=== PATIENT | female | born 1965 | race Caucasian/White ===

== ENCOUNTER 2018-08-24 10:29 | Outpatient (CLI) | payer BC | END 2018-08-24 10:30 | disposition home or self-care (01) | LOC: RAD 10:29 ==

== ENCOUNTER → 2018-10-04 | Day surgery (SDC) | payer BC ==
[~2018-10-04] MED LIST: Iodixanol 320 MG/ML 100 ML BOTTLE IV ONE; Iodixanol 320 MG/ML 200 ML BOTTLE IV ONE; Lidocaine PF 2% (5 ml) Inj (For Cardiac Arrhy) ONE; Midazolam 2 MG/2 ML VIAL ONE; Nitroglycerin 50mg in D5W 50 MG/250 ML BOTTLE IV ONE; Oxycodone/Acetaminophen 5/325 mg Tab PO PRN; Sodium Chloride 0.45% 1,000 ML IV SCH
--- NOTE | 2018-10-04 07:41 | ED PDOC ---
Arrival/HPI - General Chief Complaint: Lower Extremity Problem/Injury Time Seen by Provider: 10/04/18 07:02 Historian: Patient, Family - History of Present Illness Narrative History of Present Illness (Text): 10/04/18 07:02 Lina Strickland is a 53 year old female, with a past medical history of peripheral artery disease and CAD, who presents to the emergency department complaining of severe crampy left sided leg pain since last night. Patient informs pain radiates from the toes into the groin and is worsened when ambulating. Patient reports left leg feeling cooler than the right. Patient notes left calf is sunk in. Patient informs of intermittent pins and needles sensation. Patient reports left leg pain began intermittently 3 months ago after sustaining a wound to the 4th digit, left foot that did not heal properly. Patient informs visiting Dr. Gould and was diagnosed with peripheral artery disease via MRA and Ultrasound. Patient appreciates purple discoloration on 4th digit left foot currently in the emergency department. Patient informs visiting Dr. Gould 1 week ago for similar symptoms to current complaints who informed her to present to the emergency department if sunken in calf reoccurs. Patient denies any chest pain, shortness of breath, paralysis, headache, fever, chills, cough, or any other complaint. Time/Duration: 24 hours Symptom Onset: Gradual Symptom Course: Unchanged Quality: Cramping Activities at Onset: Light Context: Home Past Medical History - Provider Review Nursing Documentation Reviewed: Yes - Cardiac Hx Cardiac Disorders: Yes Other/Comment: PAD - Psychiatric Hx Substance Use: No Family/Social History - Physician Review Nursing Documentation Reviewed: Yes Family/Social History: No Known Family HX Smoking Status: Heavy Smoker > 10 Cigarettes Daily Hx Alcohol Use: No Hx Substance Use: No Allergies/Home Meds Allergies/Adverse Reactions: Allergies contact metal agent Adverse Reaction (Verified 10/04/18 07:04) RASH Review of Systems - Physician Review All systems were reviewed & negative as marked: Yes - Review of Systems Constitutional: absent: Fevers, Other (chills) Respiratory: absent: SOB, Cough Cardiovascular: Other (Calf sunken in). absent: Chest Pain Musculoskeletal: Arthralgias (left sided leg pain radiating from toes to groin), Other (Left toe purple. Intermittent pins and needles sensation. Left leg feels cooler than right leg. No paralysis of extremities. ) Neurological: absent: Headache Physical Exam Vital Signs Reviewed: Yes Vital Signs Temp Pulse Resp BP Pulse Ox 10/04/18 07:04 97.8 F 87 18 121/65 99 Temperature: Afebrile Blood Pressure: Normal Pulse: Regular Respiratory Rate: Normal Appearance: Positive for: Well-Appearing, Non-Toxic, Comfortable Pain Distress: None Mental Status: Positive for: Alert and Oriented X 3 - Systems Exam Head: Present: Atraumatic, Normocephalic Pupils: Present: PERRL Extroacular Muscles: Present: EOMI Conjunctiva: Present: Normal Mouth: Present: Moist Mucous Membranes Neck: Present: Normal Range of Motion Respiratory/Chest: Present: Clear to Auscultation, Good Air Exchange. No: Respiratory Distress, Accessory Muscle Use Cardiovascular: Present: Regular Rate and Rhythm, Normal S1, S2. No: Murmurs Abdomen: No: Tenderness, Distention, Peritoneal Signs Back: Present: Normal Inspection Upper Extremity: Present: Normal Inspection. No: Cyanosis, Edema Lower Extremity: Present: NORMAL PULSES, Cyanosis (left foot 4th digit purple). No: Edema, Temperature Abnormalties Neurological: Present: GCS=15, CN II-XII Intact, Speech Normal Skin: Present: Warm, Dry, Normal Color. No: Rashes Psychiatric: Present: Alert, Oriented x 3, Normal Insight, Normal Concentration Medical Decision Making ED Course and Treatment: 10/04/18 07:02 Impression: Patient is a 53 year old female who presents to the emergency department complaining of severe cramping left sided leg pain radiating from the toes to the groin since last night. Patient also notes 4th digit left foot is purple and left calf is sunken in. Patient was evaluated for similar complaints by Dr. Gould 1 week ago who informed her to present to the emergency department if calf sinking in reoccurs. Plan: -- CT ANGIO ABD/ILEOFEM -- Labs -- CAR PERIPHERAL VASCULAR -- Reassess and disposition Prior Visits: Notes and results from previous visits were reviewed. Progress Notes: - RAD Interpretation Narrative RAD Interpretations (Text): 10/04/18 11:26 CT ANGIOGRAM ABD ILEOFEM RUNOFF shows: FINDINGS: There are 2 right renal arteries and a single left renal artery present. The main renal arteries are widely patent. The nephrograms are symmetric. There is calcification and some ectasia of the abdominal aorta at the level of the KING. The KING is patent. The aortic bifurcation is patent. There is a severe web- like stenosis of the mid left common iliac artery. The right common iliac artery is patent with smooth disease. The iliac arteries are small in caliber. The right internal iliac artery is patent. Left internal iliac artery is atretic. The external iliac arteries are patent bilaterally Right lower extremity: The right common femoral artery is patent. The right profunda femoral artery is patent. The right superficial femoral artery is patent and continuous without a radiographically significant stenosis. The right popliteal artery and trifurcation are patent. The proximal right tibial arteries are patent. Left lower extremity: Left common femoral artery is patent. The left profunda femoral artery is patent. The left superficial femoral artery is patent and continuous without a radiographically significant stenosis. The left popliteal artery and trifurcation are patent.The proximal left tibial arteries are patent IMPRESSION: 1. Critical web-like stenosis in the left common iliac artery. 2. Successful left common iliac artery angioplasty and stent placement Radiology Orders: 10/04/18 07:21 ANGIOGRAPHY ABD ILEOFEM RUNOFF [CT] Stat Typing Teacher: Radiologist - EKG Interpretation EKG Interpretation (Text): 10/04/18 08:20 Reviewed EKG, shows: NSR at 69 BPM. Normal axis and intervals. Interpreted by ED Physician: Yes Type: 12 lead EKG - Scribe Statement The provider has reviewed the documentation as recorded by the Scribe Johnny Mayer All medical record entries made by the Marionibe were at my direction and personally dictated by me. I have reviewed the chart and agree that the record accurately reflects my personal performance of the history, physical exam, medical decision making, and the department course for this patient. I have also personally directed, reviewed, and agree with the discharge instructions and disposition. Disposition/Present on Arrival - Present on Arrival Any Indicators Present on Arrival: No History of DVT/PE: No History of Uncontrolled Diabetes: No Urinary Catheter: No History of Decub. Ulcer: No History Surgical Site Infection Following: None - Disposition Have Diagnosis and Disposition been Completed?: Yes Diagnosis: Peripheral vascular disease of lower extremity Disposition: HOSPITALIZED Disposition Time: 08:00 Condition: GUARDED
[2018-10-04 07:49] LABS: BASO # 0.05 K/mm3 (0.0-2.0); BASO % 0.4 % (0.0-3.0); EOS # 0.2 (0.0-0.7); EOS % 2.1 % (1.5-5.0); HEMOGLOBIN 13.8 g/dL (12.0-16.0); LYMPH # 2.8 (1.2-3.4); LYMPH % 25.1 % (22.0-35.0); MEAN CELL VOLUME 93.8 fl (80.0-105.0); MEAN CORPUSCULAR HEMOGLOBIN 30.8 pg (25.0-35.0); MEAN CORPUSCULAR HGB CONC 32.9 g/dl (31.0-37.0); MEAN PLATELET VOLUME 9.1 fl (7.0-11.0); MONO # 0.8 (0.1-0.6); MONO % 7.1 % (1.0-6.0); RBC 4.48 10^6/uL (3.5-6.1); RED CELL DISTRIBUTION WIDTH 13.9 % (11.5-14.5); WHITE BLOOD COUNT 11.2 10^3/uL (4.5-11.0)
[2018-10-04 07:57] LABS: INR 1.04; PARTIAL THROMBOPLASTIN TIME 33.9 Seconds (26.9-38.3); PROTHROMBIN TIME 11.7 SECONDS (9.4-12.5)
[2018-10-04 07:59] LABS: ALB/GLOB RATIO 1.2 (1.1-1.8); ALBUMIN 3.8 g/dL (3.0-4.8); ALT/SGPT 13 U/L (7-56); AST/SGOT 16 U/L (14-36); BLOOD UREA NITROGEN 9 mg/dL (7-21); CALCIUM 9.8 mg/dL (8.4-10.5); GFR NON-AFRICAN AMERICAN > 60
--- NOTE | 2018-10-04 09:35 | CARD ---
APPROVED REPORT Date of service: 10/04/2018 EKG Measurement Heart [id number] <Conclusion> Normal sinus rhythm with sinus arrhythmia Normal ECG
[2018-10-04 10:19] VITALS: TEMP 98
--- NOTE | 2018-10-04 11:29 | VASCULAR ---
Date of service: 10/04/2018 PROCEDURE: 1. Abdominal aortogram and bilateral lower extremity runoff with left selective views. 2. Left common iliac artery angioplasty and stent placement HISTORY: Peripheral vascular disease. Micro embolization with ischemia left 4th and 5th toes. Smoker. PHYSICIAN(S): Silviano Gould M.D. TECHNIQUE: The relative risks and indications of the procedure were explained to the patient and her daughter and consent obtained. The patient was hydrated prior to the procedure and the appropriate labs drawn. The patient was placed supine on the arteriogram table and the right groin prepped and draped in the usual sterile fashion. Conscious sedation and monitoring were provided throughout the procedure by a nurse. Under ultrasound guidance, the right common femoral artery is punctured with a micropuncture set. Exchange is made for a 5 [place] sheath. Through the sheath and over guidewire a 5 [place] flush catheter was placed the abdominal aorta at the level renal arteries and a PA DSA abdominal pelvic arteriogram performed. Catheter was pulled down the bifurcation and bilateral oblique DSA pelvic arteriograms performed. Overlapping bilateral lower extremity DSA arteriograms were obtained from the inguinal ligaments to the trifurcation. A 0.035 angled Glidewire was advanced over the bifurcation and placed in the mid left SFA.. Exchange is made for a 0.035 roses support wire. A 6 [place] Balk[place] sheath was placed in the proximal left common iliac artery. The critical web-like stenoses in the mid to distal left common iliac artery were dilated with a 8 mm x 29 mm balloon-expandable stent. An excellent angiographic result was obtained. The sheath was removed hemostasis obtained with a Perclose device. The patient tolerated the procedure well FINDINGS: There are 2 right renal arteries and a single left renal artery present. The main renal arteries are widely patent. The nephrograms are symmetric. There is calcification and some ectasia of the abdominal aorta at the level of the KING. The KING is patent. The aortic bifurcation is patent. There is a severe web-like stenosis of the mid left common iliac artery. The right common iliac artery is patent with smooth disease. The iliac arteries are small in caliber. The right internal iliac artery is patent. Left internal iliac artery is atretic. The external iliac arteries are patent bilaterally Right lower extremity: The right common femoral artery is patent. The right profunda femoral artery is patent. The right superficial femoral artery is patent and continuous without a radiographically significant stenosis. The right popliteal artery and trifurcation are patent. The proximal right tibial arteries are patent. Left lower extremity: Left common femoral artery is patent. The left profunda femoral artery is patent. The left superficial femoral artery is patent and continuous without a radiographically significant stenosis. The left popliteal artery and trifurcation are patent.The proximal left tibial arteries are patent IMPRESSION: 1.Critical web-like stenosis in the left common iliac artery. 2. Successful left common iliac artery angioplasty and stent placement
[2018-10-04 12:47] VITALS: RESP 18
[2018-10-04 12:49] VITALS: O2SAT 99
[2018-10-04 14:39] VITALS: BP 94/58; PULSE 61
== END | disposition home or self-care (01) ==
LOC: ED 06:49 → CATH 08:24
PROVIDERS: ATTEND Radiology Vascular & Interventional Radiology
DX: I73.9 Peripheral vascular disease, unspecified (principal); F17.210 Nicotine dependence, cigarettes, uncomplicated; I25.10 Atherosclerotic heart disease of native coronary artery without angina pectoris; Z91.048 Other nonmedicinal substance allergy status
CPT/HCPCS: 37221; 75625; 75716; 80053; 85025; 85610; 85730; 93005; 99152; 99153; 99285; C1760; C1769 ×3; C1876; C1887; C1892; C1894; J1644; J2250; J2405; J3010; J7030; Q9966; Q9967